=== PATIENT | male | born 1980 | race Caucasian/White ===

== ENCOUNTER 2017-02-08 06:28 | Observation (INO) | payer MEDICAID ==
[~2017-02-08] VITALS: Ht 180.3 cm; Wt 127.1 kg
[~2017-02-08 06:28] MED LIST: ARIP15TA2 PO; SERT50TA5 PO
[2017-02-08] MEDS ORDERED: SODIUM CHLORIDE 0.9% 1,000 ML IV ONE (06:45)
[2017-02-08] MEDS ORDERED: MAALOX/HYOSCYAMINE/LIDOCAINE 45 ML BOTTLE PO ONE (07:00)
[2017-02-08] MEDS ORDERED: SODIUM CHLORIDE 0.9% 1,000ML IVBOLUS ONE (07:00)
[2017-02-08] MEDS ORDERED: SODIUM CHLORIDE FLUSH 10ML SYR IVF ONE (07:00)
[2017-02-08] MEDS ORDERED: ONDANSETRON 2MG/ML, 2ML IVPush ONE ×2 (07:00→09:00)
[2017-02-08] MEDS ORDERED: HYDROmorphone 1 MG/ML, 1ML ONE ×2 (07:12→08:33)
[2017-02-08] MEDS ORDERED: ONDANSETRON 2MG/ML, 2ML ONE (07:12)
[2017-02-08] MEDS ORDERED: MAALOX/HYOSCYAMINE/LIDOCAINE 45 ML BOTTLE ONE (07:12)
[2017-02-08 07:14] LABS: HEMOGLOBIN 15.2 g/dL (13.7-18.0)
[2017-02-08] MEDS: HYDROmorphone 1 MG/ML, 1ML IVPush PRN ×2 (07:31→08:37)
[2017-02-08 07:50] LABS: ASPARTATE AMINO TRANSFERASE 27 U/L (15-37); BLOOD UREA NITROGEN 13 mg/dL (7-18)
[2017-02-08 07:55] LABS: ACETAMINOPHEN < 2 mcg/mL (10-30)
[2017-02-08 10:09] LABS: DAU SCREEN DISCLAIMER
[2017-02-08] MEDS ORDERED: ONDANSETRON ODT 4 MG ONE (12:54)
[2017-02-08] MEDS ORDERED: ONDANSETRON ODT 4 MG PO ONE (13:00)
[2017-02-08] MEDS ORDERED: ONDANSETRON ODT 4 MG PO PRN (13:30)
[2017-02-08] MEDS ORDERED: NICOTINE 14MG/24 HR PATCH.TD24 TD SCH (13:30)
[2017-02-08] MEDS ORDERED: ZIPRASIDONE 20 MG INJ IM PRN (13:30)
[2017-02-08] MEDS ORDERED: LORazepam 1MG TABLET PO PRN (13:30)
[2017-02-08] MEDS ORDERED: FOLIC ACID 1 MG TABLET PO SCH (13:30)
[2017-02-08] MEDS ORDERED: HYDROcodone/APAP 5/325 TABLET PO PRN (13:30)
[2017-02-08] MEDS ORDERED: LORazepam 2 MG/ML, 1ML IM PRN (13:30)
[2017-02-08] MEDS ORDERED: PANTOPROZOLE 40MG TABLET PO SCH (13:30)
[2017-02-08] MEDS ORDERED: THIAMINE 100MG TABLET PO SCH (13:30)
[2017-02-08] MEDS: CHLORDIAZEPOXIDE 25 MG CAPSULE PO SCH ×3 (16:46→20:06)
[2017-02-08 17:03] VITALS: BP 153/80
[2017-02-08 19:28] VITALS: BP 159/99
[2017-02-09] MEDS ORDERED: ARIPIPRAZOLE 15 MG TABLET PO SCH (09:00)
[2017-02-09] MEDS ORDERED: SERTRALINE 50MG TABLET PO SCH (09:00)
== END 2017-02-09 02:22 ==
LOC: ED 12:54 → EDIP 12:55 → ED 12:59 → 3E 16:17
PROVIDERS: ADMIT Hospitalist; ATTEND Hospitalist
DX: R45.851 Suicidal ideations (principal); F32.9 Major depressive disorder, single episode, unspecified; F10.121 Alcohol abuse with intoxication delirium; K29.20 Alcoholic gastritis without bleeding; F17.210 Nicotine dependence, cigarettes, uncomplicated; I10 Essential (primary) hypertension; K85.90 Acute pancreatitis without necrosis or infection, unspecified; N41.9 Inflammatory disease of prostate, unspecified; F99 Mental disorder, not otherwise specified; Z91.14 Patient's other noncompliance with medication regimen
CPT/HCPCS: 36415; 80053; 80307; 80329; 81003; 82140; 83605; 83690; 85025; 96361; 96374; 96375; 96376; 99285; G0378; J1170; J2405; J7030; Q0162; G0480

== ENCOUNTER 2017-02-16 15:03 | Inpatient (IN) | payer MEDICAID ==
[~2017-02-16] VITALS: Ht 180.3 cm; Wt 123.5 kg
[2017-02-16] MEDS ORDERED: LORazepam 2 MG/ML, 1ML IVPush ONE ×3 (15:30→18:00)
[2017-02-16] MEDS ORDERED: SODIUM CHLORIDE 0.9% 1,000ML IVBOLUS ONE (15:30)
[2017-02-16 15:48] LABS: HEMOGLOBIN 15.6 g/dL (13.7-18.0)
[2017-02-16] MEDS ORDERED: LORazepam 2 MG/ML, 1ML ONE ×2 (15:49→17:40)
[2017-02-16 16:00] LABS: ASPARTATE AMINO TRANSFERASE 24 U/L (15-37); BLOOD UREA NITROGEN 17 mg/dL (7-18)
[2017-02-16 16:06] LABS: ACETAMINOPHEN < 2 mcg/mL (10-30)
[2017-02-16 16:42] LABS: DAU SCREEN DISCLAIMER
[2017-02-16] MEDS ORDERED: GUAIFENESIN/DM 200-20MG, 10ML UDC PO PRN (17:00)
[2017-02-16] MEDS ORDERED: DOCUSATE 100 MG CAPSULE PO PRN (17:00)
[2017-02-16] MEDS ORDERED: ACETAMINOPHEN 325 MG TABLET PO PRN (17:00)
[2017-02-16] MEDS ORDERED: ONDANSETRON 2MG/ML, 2ML IVP PRN (17:00)
[2017-02-16] MEDS ORDERED: ZOLPIDEM 5MG TABLET PO PRN (17:00)
[2017-02-16] MEDS ORDERED: LABETALOL 5MG/ML, 20ML IV PRN (17:00)
[2017-02-16] MEDS ORDERED: POTASSIUM CHLORIDE 20 MEQ, MVI ADULT 10 ML, FOLIC ACID 1 MG, MAGNESIUM SULFATE 1 GM in ... IV SCH (17:18)
[2017-02-16] MEDS ORDERED: LORazepam 2 MG/ML, 1ML IV PRN ×4 (17:30)
[2017-02-16] MEDS ORDERED: FOLIC ACID 5 MG/ML IM ONE (17:30)
[2017-02-16] MEDS ORDERED: THIAMINE 200 MG in DEXTROSE 5% 50 ML IVPB ONE (17:30)
[2017-02-16 18:30] VITALS: BP 153/77
[2017-02-16 20:00] VITALS: BP 153/77
[2017-02-16] MEDS ORDERED: CALCIUM CARBONATE 500 MG TAB.CHEW PO ONE (20:00)
[2017-02-16] MEDS ORDERED: FOLIC ACID 1 MG TABLET PO ONE (20:30)
[2017-02-16] MEDS: NICOTINE 14MG/24 HR PATCH.TD24 TD SCH (20:49)
[2017-02-16] MEDS: LORazepam 2 MG/ML, 1ML IV PRN (21:23)
[2017-02-16] MEDS: TRAZODONE 50MG TABLET PO PRN (22:16)
[2017-02-17 01:27] VITALS: BP 104/66
[2017-02-17] MEDS: LORazepam 2 MG/ML, 1ML IV PRN (01:44)
[2017-02-17 05:59] LABS: BLOOD UREA NITROGEN 15 mg/dL (7-18); HEMOGLOBIN 14.1 g/dL (13.7-18.0)
[2017-02-17 06:02] LABS: ASPARTATE AMINO TRANSFERASE 21 U/L (15-37)
[2017-02-17 06:20] VITALS: BP 105/68
[2017-02-17] MEDS: ARIPIPRAZOLE 15 MG TABLET PO SCH (09:00)
[2017-02-17] MEDS: FLUOXETINE 20 MG CAPSULE PO SCH (09:22)
[2017-02-17] MEDS: MULTIVITAMINS/MINERALS TABLET PO SCH (09:22)
[2017-02-17 12:29] VITALS: BP 151/82
[2017-02-17] MEDS ORDERED: ONDANSETRON ODT 4 MG PO PRN (13:00)
[2017-02-17] MEDS ORDERED: LORazepam 0.5MG TABLET PO PRN (13:00)
[2017-02-17] MEDS ORDERED: LORazepam 1MG TABLET PO PRN ×3 (13:00)
[2017-02-17] MEDS ORDERED: THIAMINE 100MG TABLET PO ONE (14:00)
[2017-02-17] MEDS ORDERED: FOLIC ACID 1 MG TABLET PO ONE (14:00)
[2017-02-17] MEDS: THIAMINE 100MG TABLET PO SCH (15:31)
[2017-02-17] MEDS: FOLIC ACID 1 MG TABLET PO SCH (15:32)
[2017-02-17] MEDS: NICOTINE 14MG/24 HR PATCH.TD24 TD SCH (17:16)
[2017-02-17 19:43] VITALS: BP 151/83
[2017-02-18] MEDS: TRAZODONE 50MG TABLET PO PRN (00:22)
[2017-02-18 07:28] VITALS: BP 145/78
[2017-02-18] MEDS: ARIPIPRAZOLE 15 MG TABLET PO SCH (08:16)
[2017-02-18] MEDS: MULTIVITAMINS/MINERALS TABLET PO SCH (08:17)
[2017-02-18] MEDS: FLUOXETINE 20 MG CAPSULE PO SCH (08:17)
[2017-02-18] MEDS: THIAMINE 100MG TABLET PO SCH (08:17)
[2017-02-18] MEDS: FOLIC ACID 1 MG TABLET PO SCH (08:17)
[2017-02-18] MEDS ORDERED: FOLIC ACID 1 MG TABLET PO SCH (09:00)
[2017-02-18] MEDS ORDERED: THIAMINE 100MG TABLET PO SCH (09:00)
[2017-02-18] MEDS ORDERED: ACETAMINOPHEN 325 MG TABLET PO PRN (10:00)
[2017-02-18] MEDS ORDERED: ARIP15TA2 PO (16:26)
[2017-02-18] MEDS ORDERED: MULT-484 PO (16:26)
[2017-02-18] MEDS ORDERED: TRAZ100T15 PO (16:26)
[2017-02-18] MEDS ORDERED: THIA100T6 PO (16:26)
[2017-02-18] MEDS ORDERED: FOLI-17 PO (16:26)
[2017-02-18] MEDS ORDERED: NALT50TA PO (16:26)
[2017-02-18] MEDS ORDERED: FLUO20CA8 PO (16:27)
== END 2017-02-18 18:10 | disposition home or self-care (01) | DRG 918 ==
LOC: ED 16:44 → EDIP 16:56 → 4EST 19:03 → 3E 02-17 12:01
DX: T60.2X2A Toxic effect of other insecticides, intentional self-harm, initial encounter (principal); F33.2 Major depressive disorder, recurrent severe without psychotic features; F10.129 Alcohol abuse with intoxication, unspecified; F17.210 Nicotine dependence, cigarettes, uncomplicated; K70.10 Alcoholic hepatitis without ascites; I10 Essential (primary) hypertension; Y90.8 Blood alcohol level of 240 mg/100 ml or more; Z82.5 Family history of asthma and other chronic lower respiratory diseases; Z71.6 Tobacco abuse counseling; Y92.89 Other specified places as the place of occurrence of the external cause; Z91.5 Personal history of self-harm; Z91.14 Patient's other noncompliance with medication regimen; Z79.899 Other long term (current) drug therapy
CPT/HCPCS: 36415; 71010; 80053; 80307; 80329; 83735; 84100; 85025; 85610; 93005; 96361; 96374; 96376; J3411; J3475; J3480; J7042; G0480; J2060; J7030

== ENCOUNTER 2017-05-12 08:51 | Emergency (ER) | payer MEDICAID ==
[~2017-05-12] VITALS: Ht 180.3 cm; Wt 118.4 kg
[~2017-05-12 08:51] MED LIST changes: +FLUO20CA8 PO; +FOLI-17 PO; +MULT-484 PO; +NALT50TA PO; +THIA100T6 PO; +TRAZ100T15 PO
[2017-05-12] MEDS ORDERED: QUET200T4 PO (09:20)
[2017-05-12] MEDS ORDERED: PROPARACAINE OPHTH 0.5%, 15ML EACHEYE ONE (09:30)
[2017-05-12] MEDS ORDERED: FLUORESCEIN OPHTHALMIC 1 MG STRIP EACHEYE ONE (09:30)
[2017-05-12] MEDS ORDERED: SODIUM CHLORIDE 0.9% 1,000ML IVBOLUS ONE (10:00)
[2017-05-12] MEDS ORDERED: SODIUM CHLORIDE FLUSH 10ML SYR IVF ONE (10:00)
[2017-05-12] MEDS ORDERED: FLUORESCEIN OPHTHALMIC 1 MG STRIP ONE (10:21)
[2017-05-12] MEDS ORDERED: PROPARACAINE OPHTH 0.5%, 15ML ONE (10:21)
[2017-05-12 11:02] VITALS: BP 140/72
[2017-05-12] MEDS ORDERED: BACITRACIN ZINC OINT 500U/GM, 0.9 GM ONE (11:14)
[2017-05-12 11:20] LABS: BLOOD UREA NITROGEN 19 mg/dL (7-18)
== END 2017-05-12 11:29 | disposition home or self-care (01) ==
LOC: ED 10:31
DX: S05.11XA Contusion of eyeball and orbital tissues, right eye, initial encounter (principal); S10.83XA Contusion of other specified part of neck, initial encounter; S16.1XXA Strain of muscle, fascia and tendon at neck level, initial encounter; H11.31 Conjunctival hemorrhage, right eye; X58.XXXA Exposure to other specified factors, initial encounter; Y93.89 Activity, other specified; Y92.89 Other specified places as the place of occurrence of the external cause; Y99.8 Other external cause status
CPT/HCPCS: 36415; 70450; 70486; 72125; 80048; 82040; 85025; 85610; 96360; 99285; J7030

== ENCOUNTER 2017-05-24 00:28 | Emergency (ER) | payer MEDICAID ==
[~2017-05-24] VITALS: Ht 185.4 cm; Wt 100.0 kg
[~2017-05-24 00:28] MED LIST changes: +QUET200T4 PO
[2017-05-24] MEDS ORDERED: NALT50TA PO (01:34)
[2017-05-24] MEDS ORDERED: ONDANSETRON ODT 4 MG PO ONE (02:00)
[2017-05-24] MEDS ORDERED: ONDANSETRON ODT 4 MG ONE (02:04)
[2017-05-24 02:27] LABS: BLOOD UREA NITROGEN 13 mg/dL (7-18)
[2017-05-24 02:31] LABS: ASPARTATE AMINO TRANSFERASE 40 U/L (15-37)
[2017-05-24 06:56] VITALS: BP 138/87
== END 2017-05-24 06:57 | disposition home or self-care (01) ==
LOC: ED 00:46
DX: F10.120 Alcohol abuse with intoxication, uncomplicated (principal); F41.1 Generalized anxiety disorder
CPT/HCPCS: 36415; 80053; 85025; 99284; Q0162

== ENCOUNTER 2017-08-24 11:24 | Emergency (ER) | payer MEDICAID ==
[~2017-08-24] VITALS: Ht 177.8 cm; Wt 113.0 kg
[~2017-08-24 11:24] MED LIST changes: -ARIP15TA2 PO; +ARIP15TA3 PO; +ASPI-650 PO; +ATOR40TA78 PO; +LISI-170 PO; +METO50TA82 PO; +NITR0.4T SL
[2017-08-24] MEDS ORDERED: METO25TA35 PO (11:47)
[2017-08-24] MEDS ORDERED: FAMO20TA7 PO (11:47)
[2017-08-24] MEDS ORDERED: QUET200T PO (11:47)
[2017-08-24 14:52] VITALS: BP 109/67
== END 2017-08-24 15:43 | disposition home or self-care (01) ==
LOC: ED 13:23
DX: G31.2 Degeneration of nervous system due to alcohol (principal); I10 Essential (primary) hypertension
CPT/HCPCS: 36415; 80307; 93005; 99285; G0479

== ENCOUNTER 2017-08-24 18:15 | Emergency (ER) | payer MEDICAID ==
[~2017-08-24] VITALS: Ht 180.3 cm; Wt 102.7 kg
[~2017-08-24 18:15] MED LIST changes: +FAMO20TA7 PO; +METO25TA35 PO; +QUET200T PO
[2017-08-24] MEDS ORDERED: MAALOX/HYOSCYAMINE/LIDOCAINE 45 ML BTL ONE ×2 (18:53→19:10)
[2017-08-24 18:57] LABS: HEMATOCRIT 52.1 % (39.2-51.8); HEMOGLOBIN 17.5 g/dL (13.7-18.0); WHITE BLOOD COUNT 7.5 x10^3/uL (3.4-10)
[2017-08-24] MEDS ORDERED: MAALOX/HYOSCYAMINE/LIDOCAINE 45 ML BTL PO ONE (19:00)
[2017-08-24 19:08] LABS: BLOOD UREA NITROGEN 8 mg/dL (7-18)
[2017-08-24 19:11] LABS: ASPARTATE AMINO TRANSFERASE 32 U/L (15-37)
[2017-08-24 19:28] VITALS: BP 138/82
== END 2017-08-24 19:53 | disposition home or self-care (01) ==
LOC: ED 19:40
DX: R07.89 Other chest pain (principal); K29.20 Alcoholic gastritis without bleeding; F10.20 Alcohol dependence, uncomplicated; F19.20 Other psychoactive substance dependence, uncomplicated; Z72.9 Problem related to lifestyle, unspecified; I10 Essential (primary) hypertension; Z87.891 Personal history of nicotine dependence
CPT/HCPCS: 36415; 71020; 80053; 80307; 83690; 85025; 93005; 99285; G0479

== ENCOUNTER 2019-01-06 21:40 | Emergency (ER) | payer MEDICAID ==
[~2019-01-06] VITALS: Ht 180.3 cm; Wt 111.9 kg
[~2019-01-06 21:40] MED LIST changes: +SERT50TA28 PO; -SERT50TA5 PO; -THIA100T6 PO; +THIA100T67 PO; +TRAZ-137 PO; -TRAZ100T15 PO
--- NOTE | 2019-01-06 21:58 | NUR ---
38 Y/O MALE PRESENTS TO THE ER C/O SUDDEN ONSET OF SEVERE HATCH. STATES SHORTLY PRIOR TO THIS THE PT BECAME EXTREMELY PALE. HE STATES AT THAT MOMENT HE FELT NAUSEATED AND LIKE HE HAD TO HAVE A BOWEL MOVEMENT AT THE SAME TIME. HE WENT TO THE RESTROOM AND SHORTLY AFTER HAVING A BOWEL MOVEMENT HE FELT THE HEADACHE START. HE DESCRIBES IT THE WORST HEADACHE HE HAS EVER HAD. DENIES ANY BLURRED VISION, PHOTOSENSITIVITY. DOES REPORT SOME NAUSEA. DENIES ANY RECENT TRAUMA/FALLS. NEURO INTACT. PUPILS EQUAL/REACTIVE. ALL VITALS STABLE. SKIN PALE/COOL/CLAMMY. AT BEDSIDE. WARM BLANKETS PROVIDED AT PATIENT'S REQUEST. CALL LIGHT WITHIN REACH. WILL CONTINUE TO MONITOR.
--- NOTE | 2019-01-06 22:00 | NUR ---
DR. GERARDO AT BEDSIDE EVALUATING PT.
--- NOTE | 2019-01-06 22:16 | NUR ---
IV ESTABLISHED, LABS DRAWN. GIVEN TO SALVAGE WINDER. REMAINS AT BEDSIDE. VITALS STABLE.
[2019-01-06 22:26] LABS: BASOPHILS # (AUTO) 0.03 x10^3/uL (0-0.1); BASOPHILS % (AUTO) 1 % (0-1); EOSINOPHILS # (AUTO) 0.18 x10^3/uL (0-0.4); EOSINOPHILS % (AUTO) 3 % (1-7); LYMPHOCYTES # (AUTO) 2.46 x10^3/uL (1-3.4); LYMPHOCYTES % (AUTO) 42 % (22-44); MD NO; MEAN CORPUSCULAR HEMOGLOBIN 30.2 pg (27.5-34.5); MEAN CORPUSCULAR HGB CONC 33.9 g/dL (33.2-36.2); MEAN CORPUSCULAR VOLUME 89.2 fL (81-97); MEAN PLATELET VOLUME 7.5 fL (7.4-10.4); MONOCYTES % (AUTO) 9 % (2-9); NEUTROPHILS # (AUTO) 2.69 x10^3/uL (1.8-6.8); NEUTROPHILS % (AUTO) 46 % (42-75); PLATELET COUNT 239 x10^3/uL (130-400); RED BLOOD COUNT 4.65 x10^6/uL (4.38-5.82); RED CELL DISTRIBUTION WIDTH 12.2 % (9.4-14.8)
[2019-01-06] MEDS ORDERED: SODIUM CHLORIDE FLUSH 10ML SYR IVF ONE (22:30)
[2019-01-06 22:32] LABS: ALBUMIN 3.8 g/dL (3.4-5.0); ANION GAP 9 mmol/L (5-15); CHLORIDE 107 mmol/L (98-107); CREATININE 1.03 mg/dL (0.7-1.3)
[2019-01-06 22:50] LABS: INTERNATIONAL NORMALIZED RATIO 0.97 (0.93-1.1); PROTHROMBIN TIME 10.3 Seconds (9.6-11.5)
[2019-01-06] MEDS ORDERED: LORazepam 2 MG/ML, 1ML ONE (22:56)
[2019-01-06] MEDS ORDERED: LORazepam 2 MG/ML, 1ML IVPush ONE (23:00)
[2019-01-06 23:03] VITALS: BP 123/68
--- NOTE | 2019-01-06 23:04 | NUR ---
PT MEDICATED PER EMAR. 5 RIGHTS ADDRESSED.
--- NOTE | 2019-01-06 23:18 | NUR ---
PT BACK FROM CT.
--- NOTE | 2019-01-07 00:38 | NUR ---
Patient/Caregiver given discharge instructions and they have confirmed that they understand the instructions. Patient ambulatory with steady gait.
[2019-01-07] MEDS ORDERED: OMNIPAQUE 350 MG/ML, 100ML BOTTLE ONE (01:32)
== END 2019-01-07 00:41 | disposition home or self-care (01) ==
LOC: ED 22:25
DX: G44.219 Episodic tension-type headache, not intractable (principal); F41.1 Generalized anxiety disorder; F32.9 Major depressive disorder, single episode, unspecified; I10 Essential (primary) hypertension
CPT/HCPCS: 36415; 70450; 70496; 70498; 80048; 82040; 83690; 85025; 85610; 85730; 96374; 99284; J2060; Q9967